=== PATIENT | male | born 1950 | race Hispanic/Latino ===

== ENCOUNTER 2019-04-15 06:52 | Observation (INO) | payer MEDICARE ==
--- NOTE | 2019-04-14 12:08 | Diagnostic Imaging Report ---
EXAMINATION: CHEST 2 VIEWS INDICATION: Pre-operative COMPARISON: None FINDINGS: TUBES and LINES: None. LUNGS: The lung volumes are normal. No focal consolidation or pulmonary edema. Bilateral calcified granulomas. PLEURA: No pleural effusion or pneumothorax. HEART AND MEDIASTINUM: The cardiomediastinal silhouette is normal in size and contour. BONES AND SOFT TISSUES: No acute fracture or dislocation. Right hemidiaphragmatic eventration. UPPER ABDOMEN: No free air under the diaphragm. IMPRESSION: No focal pneumonia or pulmonary edema. Signed by: Karla Lindquist MD on 04/14/2019 12:05 PM
[2019-04-14 12:11] LABS: BASOPHILS % 0.5 % (0.0-1.0); EOSINOPHILS # (AUTO) 0.2 (0.0-0.4); EOSINOPHILS % 3.1 % (0.0-6.0); HEMOGLOBIN 12.9 g/dL (14.0-18.0); LYMPHOCYTES # (AUTO) 1.3 (1.0-3.2); LYMPHOCYTES % 16.6 % (18.0-39.1); MEAN CORPUSCULAR HEMOGLOBIN 31.4 pg (28-32); MEAN CORPUSCULAR HGB CONC 33.9 g/dL (31-35); MEAN CORPUSCULAR VOLUME 92.5 fL (81-99); MONOCYTES # (AUTO) 0.4 (0.2-0.8); MONOCYTES % 5.2 % (4.4-11.3); NEUTROPHILS # (AUTO) 5.7 (2.1-6.9); NEUTROPHILS % 73.4 % (38.7-80.0); PLATELET COUNT 227 x10e3/uL (140-360); RED BLOOD COUNT 4.11 x10e6/uL (4.3-5.7); RED CELL DISTRIBUTION WIDTH 14.1 % (11.7-14.4)
[2019-04-14 12:48] LABS: CALCIUM 8.8 mg/dL (8.4-10.2); CREATININE, SERUM 1.33 mg/dL (0.72-1.25)
[~2019-04-15] VITALS: Ht 157.5 cm; Wt 66.7 kg
[~2019-04-15 06:52] MED LIST: FLOMAX0.4 MG PO; JALYN 0.5-0.41 EACH PO; JANUMET 50-1,01 EACH PO; PRAVASTATIN SOD40 MG PO
--- OUTSIDE RECORDS SUMMARY | 2019-04-15 06:55 | XMS REPORT ---
Author [facility] Address Unknown Phone Unavailable Care Team Providers Care General Cargo Clerk Name Role Phone KELLI BERNAL Unavailable Unavailable Payers Payer Name Policy Type Policy Number Effective Date Expiration Date Problems This patient has no known problems. Allergies, Adverse Reactions, Alerts This patient has no known allergies or adverse reactions. Medications This patient has no known medications. Results Test Description Test Time Test Comments Text Results Atomic Results Result Comments CHEST 2 VIEWS 2019-04-14 12:04:00 [place] [address] Patient Name: LOU ALVA MR #: [id number] : 1950 Age/Sex: 69/M Req #: [id number] Adm Physician: Ordered by: KELLI BERNAL MD Report #: [id number] Location: OR Room/Bed: Procedure: [id number] DX/CHEST 2 VIEWS Exam Date: 04/14/19 Exam Time: 1135 REPORT STATUS: Signed EXAMINATION: CHEST 2 VIEWS INDICATION: Pre-operative COMPARISON: None FINDINGS: TUBES and LINES: None. LUNGS: The lung volumes are normal. No focal consolidation or pulmonary edema. Bilateral calcified granulomas. PLEURA: No pleural effusion or pneumothorax. HEART AND MEDIASTINUM: The cardiomediastinal silhouette is normal in size and contour. BONES AND SOFT TISSUES: No acute fracture or dislocation. Right hemidiaphragmatic eventration. UPPER ABDOMEN: No free air under the diaphragm. IMPRESSION: No focal pneumonia or pulmonary edema. Signed by: Preston Sánchez MD on 04/14/2019 12:05 PM Dictated By: PRESTON SÁNCHEZ MD 1205 Transcribed By: EDWARD on 04/14/19 1205 COPY TO: KELLI BERNAL MD
[2019-04-15] MEDS ORDERED: CELECOXIB 200 MG CAP ONE (07:57)
[2019-04-15] MEDS ORDERED: CEFAZOLIN SOD 1 GM/NS 50ML 100 ML IV ONE (07:58)
[2019-04-15] MEDS ORDERED: GABAPENTIN 300 MG CAP ONE (07:58)
[2019-04-15] MEDS ORDERED: [UNRECOGNIZED DRUG - OTHER] PO (08:21)
[2019-04-15] MEDS ORDERED: LOSARTAN PO (08:21)
[2019-04-15] MEDS ORDERED: JOINT SUPPLEMENT PO (08:21)
[2019-04-15] MEDS ORDERED: DEXAMETHASONE SOD PHOS 10 MG/1 ML VIAL ONE (08:42)
[2019-04-15] MEDS ORDERED: VANCOMYCIN HCL 500 MG ONE (09:35)
[2019-04-15] MEDS ORDERED: BUPIVACAINE 0.25%/EPI 30ML SDV INJ ONE (09:35)
[2019-04-15] MEDS ORDERED: SODIUM CHLORIDE 0.9% 500ML 500 ML ONE (09:37)
[2019-04-15] MEDS ORDERED: TRANEXAMIC ACID 1,000 MG/10 ML ML ONE (09:43)
[2019-04-15] MEDS ORDERED: ROPIVACAINE 246.25 MG, EPINEPHRINE HCL 1:1000 1ML 0.5 MG, CLONIDINE HCL 0.08 MG, KETORO... INJ ONE ×5 (09:45)
[2019-04-15] MEDS ORDERED: SODIUM CHLORIDE 0.9% 50ML 50 ML ONE (11:08)
[2019-04-15] MEDS ORDERED: ACETAMINOPHEN 1000 MG/100 ML 100 ML IV ONE (11:22)
[2019-04-15] MEDS ORDERED: HYDROCODONE/APAP 5MG-325MG TAB PO PRN (12:15)
[2019-04-15] MEDS ORDERED: ACETAMINOPHEN 650 MG SUPP PR PRN (12:15)
[2019-04-15] MEDS ORDERED: HYDROCODONE/APAP 7.5MG-325MG 1 EA TAB PO PRN (12:15)
[2019-04-15] MEDS ORDERED: KETOROLAC TROMETHAMINE 30 MG/ML VIAL IV PRN (12:15)
[2019-04-15] MEDS ORDERED: DIPHENHYDRAMINE HCL INJ 50 MG/ML VIAL IM/IV PRN (12:15)
[2019-04-15] MEDS ORDERED: PROMETHAZINE HCL (IM) 25 MG/ML VIAL INJ PRN (12:15)
[2019-04-15] MEDS ORDERED: DOCUSATE SODIUM 100 MG CAP PO PRN (12:15)
[2019-04-15] MEDS ORDERED: ONDANSETRON HCL INJ 2MG/ML 2ML 2 MG/ML VIAL IV PRN (12:15)
[2019-04-15] MEDS ORDERED: SUGAMMADEX SODIUM 200 MG/2 ML VIAL IV ONE (12:26)
[2019-04-15] MEDS ORDERED: INSULIN REGULAR, HUMAN 100 UNIT/1 ML 3ML VIAL ONE (13:30)
[2019-04-15] MEDS: SODIUM CHLORIDE 0.9% 1000ML 1,000 ML IV SCH ×2 (15:00→22:13)
[2019-04-15] MEDS: CEFAZOLIN SOD 1 GM/NS 50ML 50 ML IV SCH ×2 (15:00→22:00)
[2019-04-15 15:40] VITALS: BP 127/80
--- NOTE | 2019-04-15 15:47 | Operative Report ---
DATE OF PROCEDURE: 04/15/2019 SURGEON: Alhaji Byers MD THREAD TOOL GRINDER SET UP OPERATOR: Isac Rose PA-C. PREOPERATIVE DIAGNOSIS: Osteoarthritis, right shoulder. POSTOPERATIVE DIAGNOSIS: Osteoarthritis, right shoulder. PROCEDURE: Right shoulder hemiarthroplasty. INDICATIONS: The patient is a 69-year-old gentleman with severe arthritic changes in his right shoulder. He was initially seen some years ago and shoulder replacement surgery was recommended. For reasons not entirely clear, he was seen elsewhere and treated with right shoulder arthroscopy. He states this did nothing to help his symptoms. He returned about a year later to further discuss right shoulder replacement. I have reviewed the procedure and the associated risks and benefits. The differences between total shoulder replacement and hemiarthroplasties have been explained. The pros and cons of each procedure were explained. The patient states he would like to proceed with a right shoulder hemiarthroplasty. All of his questions were answered and he stated he wished to proceed. PROCEDURE IN DETAIL: The patient was brought to the operating room after receiving an interscalene block and prophylactic antibiotics. He was placed under general anesthetic and positioned in the beach chair position on the shoulder table. His right upper extremity was prepped and draped in a sterile manner. A preoperative time-out was performed. Approximately 10 mL of 0.5% Marcaine with epinephrine had been injected in the area of the incision. An axillary incision was made. The deltopectoral interval was carefully identified through the fat strip. The cephalic vein was dissected out and retracted with the deltoids. The proximal portion of the pectoralis major was released. A self-retaining Apple Cade retractor was placed after freeing up the deltoid from submuscular adhesions. The conjoined tendon was retracted to the medial side. The inferior leash of vessels over the anterior capsule was ligated. Biceps tenodesis was performed. The subscapularis and capsular complex were released from the inferior recess all the way up to the rotator interval. The biceps tendon was released and resected at the supraglenoid tubercle. The shoulder was carefully and slowly mobilized. Care was taken to avoid injury to the axillary nerve. The humeral head was allowed to protrude out of the wound. The remainder of the rotator cuff tendon was intact. An oscillating saw was used to resect the humeral head after placing a template for a loose angular guideline. The head was resected in approximately 30 degrees of retroversion. Inferior osteophytes were removed with a rongeur. A [employer] shoulder system was used. The canal was broached with internal reamers up to 10 mm. This had good endosteal fill. A size 10 body was approached. This had good rotational stability. Trial reductions were performed. A 52 mm x 18 mm humeral head had good fill of the glenohumeral joint and appropriate stability. The trial implants were removed. The shoulder joint was thoroughly irrigated with sterile saline. A spray mixture of diluted polymyxin and vancomycin spray had been used throughout the case as well. The actual implant was impacted into place. The head was impacted onto the stem. A final reduction was performed. The subscapularis capsular complex and the rotator interval were repaired with #1 Ethibond through transosseous stitches. The wound was further irrigated and the skin was closed with subcuticular Vicryl and wyatt. Prior to closure, the cephalic vein was noted to be intact. Approximately 40 mL of a premixed pericapsular JOSEPH injection was placed around the joint for local anesthetic. He was placed into a sterile bandage and an UltraSling. He was extubated and transported to the recovery room in stable condition. Estimated blood loss was 50 mL. All needle and sponge counts were correct. Alhaji Byers MD DR/MAGGI /[id number]
[2019-04-15 16:14] VITALS: BP 127/80
[2019-04-15] MEDS: ACETAMINOPHEN 1000 MG/100 ML IV SCH (17:52)
[2019-04-15] MEDS: ASPIRIN 325 MG TAB PO SCH (17:52)
[2019-04-15] MEDS ORDERED: EPINEPHRINE HCL 1:1000 1ML 1 MG/ML AMP ONE (17:52)
[2019-04-15] MEDS ORDERED: BUPIVACAINE HCL 0.5% INJ 30 ML VIAL INJ ONE (17:52)
[2019-04-15] MEDS: CELECOXIB 100 MG CAP PO SCH (17:52)
[2019-04-15] MEDS ORDERED: MIDAZOLAM HCL 2 MG/2 ML VIAL ONE (18:39)
[2019-04-15] MEDS ORDERED: FENTANYL CITRATE/PF 100MCG/2 ML INJ ONE (18:39)
[2019-04-15] MEDS ORDERED: SEVOFLURANE INHAL SOLN 250 ML PEN BTL ONE (19:15)
[2019-04-15] MEDS ORDERED: ROCURONIUM BROMIDE 10 MG/ML 5ML VIAL ONE (19:15)
[2019-04-15] MEDS ORDERED: DEXAMETHASONE SOD PHOS INJ 4 MG/ML VIAL ONE (19:15)
[2019-04-15] MEDS ORDERED: ONDANSETRON HCL INJ 2MG/ML 2ML 2 MG/ML VIAL ONE (19:15)
[2019-04-15] MEDS ORDERED: PHENYLEPHRINE HCL 1% 10 MG/ML VIAL ONE (19:15)
[2019-04-15] MEDS ORDERED: LIDOCAINE HCL 2% LOCAL INJ 5 ML SDV VIAL INJ ONE (19:15)
[2019-04-15] MEDS ORDERED: PROPOFOL IV EMULSION 10 MG/ML 20 ML VIAL ONE (19:15)
[2019-04-15] MEDS ORDERED: ACETAMINOPHEN 1000 MG/100 ML IV ONE (19:15)
--- NOTE | 2019-04-15 19:27 | Diagnostic Imaging Report ---
RIGHT SHOULDER - 1 Images HISTORY: Status post right shoulder hemiarthroplasty COMPARISON: None available. FINDINGS: Sensitivity limited by portable technique. Bones: Status post right shoulder hemiarthroplasty. No acute displaced fracture. Soft tissues: Metallic surgical wyatt. IMPRESSION: Status post right shoulder hemiarthroplasty. Signed by: Dr. Josh Miller D.O., M.M.M. on 04/15/2019 7:24 PM
--- NOTE | 2019-04-15 19:56 | NUR ---
RECEIVED PT IN BED AOX3 .PT HAS RT SHOULDER WITH IMMOBILIZER .PT DENIES PAIN AT THIS TIME .CALL LIGHT WITH IN REACH CONTINUE T MONITOR
[2019-04-15 19:58] VITALS: BP 127/80
[2019-04-15 20:00] VITALS: BP 135/79
[2019-04-15] MEDS ORDERED: ZOLPIDEM TARTRATE 5 MG TAB PO PRN (21:00)
[2019-04-15] MEDS ORDERED: FLOMAX0.4 MG PO (23:14)
[2019-04-15] MEDS ORDERED: AVODART0.5 MG PO (23:14)
[2019-04-15] MEDS ORDERED: DEXTROSE 50% SYRINGE 50 ML IV PRN (23:15)
[2019-04-15] MEDS: INSULIN LISPRO 100 UNIT/1 ML 3ML VIAL SQ SCH (23:39)
[2019-04-15] MEDS ORDERED: TAMSULOSIN HCL 0.4 MG CAP PO SCH (23:40)
[2019-04-16] VITALS: BP 147/88
[2019-04-16] MEDS: ACETAMINOPHEN 1000 MG/100 ML IV SCH ×2 (00:27→06:00)
[2019-04-16 04:00] VITALS: BP 115/68
[2019-04-16 05:26] LABS: HEMATOCRIT 33.6 % (38.2-49.6); HEMOGLOBIN 11.5 g/dL (14.0-18.0)
--- NOTE | 2019-04-16 05:49 | Consultation ---
DATE OF CONSULTATION: REASON FOR CONSULTATION: Postop medical management. HISTORY OF PRESENT ILLNESS: The patient is a gentleman, status post right shoulder surgery, who is doing well postoperatively, he only has minimal pain currently in his right shoulder, but he does complain of some BPH symptoms, but he has been able to urinate. REVIEW OF SYSTEMS: He denies any chest pain, fever, chills, nausea, vomiting, headache, shortness of breath, or dizziness. PAST MEDICAL HISTORY: Diabetes, chronic kidney disease stage 3, hypertension, and BPH. MEDICATIONS: See MAR. ALLERGIES: NONE. SOCIAL HISTORY: Nonsmoker. Nondrinker. He is a . FAMILY HISTORY: Diabetes, arthritis, high blood pressure, and chronic kidney disease. PHYSICAL EXAMINATION: VITAL SIGNS: Temperature is 96.1, pulse 97, blood pressure 147/88, sats 94% on room air. GENERAL: He is in no apparent distress. NECK: Supple. CARDIOVASCULAR: Regular rate and rhythm. LUNGS: Clear to auscultation bilaterally. ABDOMEN: Good bowel sounds. Soft, nontender. No bladder distention. EXTREMITIES: No clubbing or cyanosis. NEUROLOGIC: Nonfocal. Right shoulder is in a brace. He is able to move all his fingers on the right arm. ASSESSMENT/PLAN: 1. Right shoulder pain. Continue with postoperative care per Dr. Byers. 2. Hypertension. Continue with his home medications and monitoring of blood pressure. 3. Diabetes. Continue to monitor sugars and continue with his medication. 4. Chronic kidney disease stage 3. Continue to monitor p.r.n. 5. Anemia. Check a CBC. 6. Benign prostatic hypertrophy. We will continue with his Flomax and finasteride. 7. Please see hospital chart for full details. MD AYDE Aguilar/MODL /[id number]
[2019-04-16] MEDS: CEFAZOLIN SOD 1 GM/NS 50ML 50 ML IV SCH (06:00)
--- NOTE | 2019-04-16 06:47 | NUR ---
CALLED DR BOURGEOIS DURING THE SHIFT TO RENEW THE HOME MEDICATION .PT RESTING PT URINATED 1500 CC .DENIES PAIN .CALL LIGHT WITH IN REACH .CONTINUE TO MONITOR
--- NOTE | 2019-04-16 07:15 | NUR ---
REPORT GIVEN TO THE CHARGE NURSE
[2019-04-16] MEDS: INSULIN LISPRO 100 UNIT/1 ML 3ML VIAL SQ SCH (07:30)
[2019-04-16] MEDS ORDERED: INSULIN LISPRO 100 UNIT/1 ML 3ML VIAL SQ SCH (07:30)
--- NOTE | 2019-04-16 07:32 | NUR ---
Rcvd patient in report this am. Patient is asleep in bed at this time. No s/s of distress noted
[2019-04-16] MEDS: ASPIRIN 325 MG TAB PO SCH (08:10)
[2019-04-16] MEDS: CELECOXIB 100 MG CAP PO SCH (08:11)
[2019-04-16 08:15] VITALS: BP 115/68
[2019-04-16 08:20] VITALS: BP 130/77
--- NOTE | 2019-04-16 08:20 | NUR ---
PERFORMED STERILE STRAIGHT CATH ON PT, COLLECTED 400 ML OF URINE
[2019-04-16] MEDS ORDERED: SITAGLIPTIN 100 MG TAB PO SCH (09:00)
[2019-04-16] MEDS ORDERED: TAMSULOSIN HCL 0.4 MG CAP PO SCH (09:00)
[2019-04-16] MEDS ORDERED: LOSARTAN 25 MG PO SCH (09:00)
[2019-04-16] MEDS ORDERED: DUTASTERIDE 0.5 MG CAP PO SCH (09:00)
[2019-04-16] MEDS ORDERED: METFORMIN HCL 500 MG TAB PO SCH (09:00)
[2019-04-16] MEDS ORDERED: LOSARTAN POTASSIUM 25 MG TAB PO SCH (09:00)
[2019-04-16] MEDS ORDERED: NON-FORMULARY MEDICATION (Sitagliptin Phos/Metformin Hcl (Janumet 50-1,000 Mg Tablet) 1 TA PO SCH (09:00)
[2019-04-16] MEDS ORDERED: ONDANSETRON HCL 4 MG ORAL DISINTEGRATING TAB PO PRN (09:15)
[2019-04-16 09:37] VITALS: BP 130/77
[2019-04-16] MEDS ORDERED: ACETAMINOPHEN 1000 MG/100 ML IV PRN (12:15)
[2019-04-16] MEDS ORDERED: CELECOXIB 200 MG CAP PO SCH (17:00)
--- NOTE | 2019-04-16 17:44 | NUR ---
HUNGARIAN MENDOZA LETTER EXPLAINED TO PT USING VACATION PLANNER, SIGNED BY PT'S DTR AND PLACED IN CHART COPY TO PT IN CARE TRANSITIONS FOLDER
[2019-04-16] MEDS ORDERED: NON-FORMULARY MEDICATION (Pravastatin Sodium 40 MG) PO SCH (21:00)
[2019-04-16] MEDS ORDERED: SIMVASTATIN 20 MG TAB PO SCH (21:00)
== END 2019-04-16 11:55 | disposition home or self-care (01) ==
LOC: OR 06:52 → PACU V 12:16 → MED/SURG 14:45
PROVIDERS: ADMIT Specialist; ATTEND Specialist
DX: M19.011 Primary osteoarthritis, right shoulder (principal); E11.9 Type 2 diabetes mellitus without complications; Z79.4 Long term (current) use of insulin; E11.22 Type 2 diabetes mellitus with diabetic chronic kidney disease; I12.9 Hypertensive chronic kidney disease with stage 1 through stage 4 chronic kidney disease, or unspecified chronic kidney disease; N18.3 Chronic kidney disease, stage 3 (moderate); N40.1 Benign prostatic hyperplasia with lower urinary tract symptoms; R33.8 Other retention of urine
CPT/HCPCS: 23470; 36415 ×3; 71046; 73020; 80048; 82948 ×2; 85014; 85018; 85025; 93005; 97116; 97161; G0378 ×2; J0131 ×2; J0171; J0690 ×2; J1100 ×2; J1885; J2001; J2250; J2370; J2405; J2704; J2795; J3010; J3370; J7030 ×2; J7040; J1817

== ENCOUNTER 2022-10-28 23:31 | Emergency (ER) | payer MEDICARE ==
[~2022-10-28] VITALS: Ht 157.5 cm; Wt 66.7 kg
[~2022-10-28 23:31] MED LIST changes: +AVODART0.5 MG PO; +JOINT SUPPLEMENT PO; +LOSARTAN PO; +[UNRECOGNIZED DRUG - OTHER] PO
[2022-10-29 00:30] LABS: ALANINE AMINOTRANSFERASE 23 IU/L (0-55); ALBUMIN 3.5 g/dL (3.5-5.0); ALKALINE PHOSPHATASE 94 IU/L (40-150); ANION GAP 9.3 mmol/L (8-16); BLOOD UREA NITROGEN 40 mg/dL (7-26); BUN/CREATININE RATIO 22 (6-25); CALCIUM 8.8 mg/dL (8.4-10.2); CARBON DIOXIDE 22 mmol/L (22-29); CHLORIDE 112 mmol/L (98-107); CREATINE KINASE 35 IU/L (30-200); CREATININE, SERUM 1.81 mg/dL (0.72-1.25); GLUCOSE 177 mg/dL (74-118); POTASSIUM 4.3 mmol/L (3.5-5.1); SODIUM 139 mmol/L (136-145)
[2022-10-29 02:41] LABS: CREATINE KINASE 31 IU/L (30-200)
[2022-10-29 02:58] LABS: BASOPHILS # (AUTO) 0.1 (0.0-0.1); BASOPHILS % 0.7 % (0.0-1.0); EOSINOPHILS # (AUTO) 0.3 (0.0-0.4); EOSINOPHILS % 3.8 % (0.0-6.0); HEMATOCRIT 36.9 % (38.2-49.6); HEMOGLOBIN 11.4 g/dL (14.0-18.0); LYMPHOCYTES # (AUTO) 1.5 (1.0-3.2); LYMPHOCYTES % 20.2 % (18.0-39.1); MEAN CORPUSCULAR HEMOGLOBIN 32.1 pg (28-32); MEAN CORPUSCULAR HGB CONC 30.9 g/dL (31-35); MEAN CORPUSCULAR VOLUME 103.9 fL (81-99); MONOCYTES # (AUTO) 0.5 (0.2-0.8); MONOCYTES % 7.2 % (4.4-11.3); NEUTROPHILS # (AUTO) 4.9 (2.1-6.9); NEUTROPHILS % 65.9 % (38.7-80.0); PLATELET COUNT 231 x10e3/uL (140-360); RED BLOOD COUNT 3.55 x10e6/uL (4.3-5.7); RED CELL DISTRIBUTION WIDTH 13.5 % (11.7-14.4)
== END 2022-10-29 03:08 | disposition home or self-care (01) ==
LOC: ER 23:35
DX: R07.89 Other chest pain (principal); I10 Essential (primary) hypertension; E11.65 Type 2 diabetes mellitus with hyperglycemia; D64.9 Anemia, unspecified; E78.5 Hyperlipidemia, unspecified
CPT/HCPCS: 36415; 71045; 80053; 82550; 82553; 84484; 85025; 93005; 99284